=== PATIENT | female | born 1960 | race Caucasian/White ===

== ENCOUNTER 2020-03-02 12:16 | Emergency (ER) | payer BC ==
[2020-03-02] MEDS ORDERED: ONDANSETRON 4 MG/2 ML VIAL ONE ×2 (13:03→16:17)
[2020-03-02 14:24] LABS: Basophils % 0.6 % (0-1.3); Hematocrit 41.6 % (36.0-45.0); Lymphocytes % 13.8 % (15.3-44.8); MPV 7.3 fL (7.6-11.3); RBC Red Blood Cell Count 4.36 M/uL (3.86-4.86)
[2020-03-02 14:39] LABS: ALT/SGPT 26 U/L (12-78); AST/SGOT 24 U/L (15-37); Albumin 3.2 g/dL (3.4-5.0); Alkaline Phosphatase 89 U/L (45-117); BUN Blood Urea Nitrogen 11 mg/dL (7-18); Bicarbonate 28 mmol/L (21-32); Bilirubin Direct 0.1 mg/dL (0-0.2); Bilirubin Total 0.4 mg/dL (0.2-1.0); Glucose Level 106 mg/dL (74-106); Lipase 65 U/L (73-393); Potassium 3.9 mmol/L (3.5-5.1); Protein, Total 6.5 g/dL (6.4-8.2); Sodium Level 142 mmol/L (136-145)
--- NOTE | 2020-03-02 14:50 | RAD REPORT ---
EXAM DESCRIPTION: CTAbdomen Pelvis W Contrast - 03/02/2020 2:25 pm CLINICAL HISTORY: Abdominal pain. ABD PAIN COMPARISON: No comparisons TECHNIQUE: Biphasic CT imaging of the abdomen and pelvis was performed with 100 ml non-ionic IV cont rast. All CT scans are performed using dose optimization technique as appropriate and may include automated exposure control or mA/KV adjustment according to patient size. FINDINGS: The lung bases are clear. Cholecystectomy clips. Postsurgical changes about the stomach. S everal postsurgical clips are also noted in the small bowel mesenteric and left lower quadrant small bowel loops. Postsurgical change also seen involving the rectum. The liver, spleen, pancreas, adrenal glands and kidneys are within normal limits. No bowel obstruction, free air, free fluid or abscess. The appendix is normal. No evidence of signi ficant lymphadenopathy. No suspicious bony findings. IMPRESSION: No acute intra-abdominal or pelvic finding.
[2020-03-02] MEDS ORDERED: NA CHLORIDE 0.9% 500 ML ONE (15:14)
--- NOTE | 2020-03-02 15:31 | ER ---
Nurse's Notes [facility] Name: Mary Snow Age: 59 yrs Sex: Female : 1960 Arrival Date: 03/02/2020 Time: 12:18 Bed 23 Private MD: Diagnosis: Abdominal and pelvic pain;Diarrhea, unspecified;Nausea Presentation: 03/02 12:23 Chief complaint: EMS states: pt started experience n/v about 4 hours ago. diarrhea for zb the last past two days. with fatigue. pt has not been tested for covid. Coronavirus screen: cough unrelated to allergies, fatigue, fever, nausea. Ebola Screen: No symptoms or risks identified at this time. Initial Sepsis Screen: Does the patient meet any 2 criteria? No. Patient's initial sepsis screen is negative. Does the patient have a suspected source of infection? No. Patient's initial sepsis screen is negative. Risk Assessment: Do you want to hurt yourself or someone else? Patient reports no desire to harm self or others. Onset of symptoms was March 02, 2020. 12:23 Method Of Arrival: EMS: [facility] zb 12:23 Acuity: FREDY 3 zb Triage Assessment: 12:54 General: Appears in no apparent distress. comfortable, Behavior is cooperative, zb anxious, Reports feeling ill for 0-12 hours, fatigue for 0-12 hours. Pain: Denies pain. EENT: No signs and/or symptoms were reported regarding the EENT system. Neuro: Level of Consciousness is awake, alert, obeys commands, Oriented to person, place, time, situation. Neuro: Reports weakness in generalized. Cardiovascular: Heart tones S1 S2 present Capillary refill < 3 seconds in bilateral fingers Patient's skin is warm and dry. Pulses are all present. Respiratory: Airway is patent Respiratory effort is even, unlabored, Respiratory pattern is regular, Breath sounds are diminished bilaterally. Respiratory: Reports cough that is Denies shortness of breath. GI: Abdomen is round non-distended, Bowel sounds Abd is soft and non tender X 4 quads. Reports cramping, diarrhea, nausea, vomiting. : No signs and/or symptoms were reported regarding the genitourinary system. Derm: Skin is intact, is healthy with good turgor, Skin is dry, Skin is normal. Musculoskeletal: Circulation, motion, and sensation intact. Capillary refill < 3 seconds, in bilateral fingers. Range of motion: intact in all extremities. Historical: - Allergies: 12:35 TETRACYCLINES; zb 12:35 monocyclines; zb 12:35 Minocycline; zb 12:35 Sulfa (Sulfonamide Antibiotics); zb - Home Meds: 12:54 sertraline 100 mg oral tab 1.5 tabs once daily [Active]; lisinopril 20 mg Oral tab zb [Active]; Benadryl Oral [Active]; Celebrex 100 mg Oral cap [Active]; - PMHx: 12:54 Hypertension; Anxiety; back surgery; colon resection; gastric bypass; left knee zb surgery; gallbladder surgery; - Immunization history:: Adult Immunizations up to date. - Social history:: Smoking status: Patient denies any tobacco usage or history of. Screenin:23 Abuse screen: Denies threats or abuse. Denies injuries from another. Nutritional zb screening: No deficits noted. Tuberculosis screening: No symptoms or risk factors identified. Fall Risk None identified. Assessment: 12:30 Reassessment: See triage assessment. zb 13:30 Reassessment: Patient appears in no apparent distress at this time. Patient and/or zb family updated on plan of care and expected duration. Pain level reassessed. Patient is alert, oriented x 3, equal unlabored respirations, skin warm/dry/pink. family at bedside. pt states no c/o of nausea at time. 14:30 Reassessment: Patient appears in no apparent distress at this time. Patient and/or zb family updated on plan of care and expected duration. Pain level reassessed. Patient is alert, oriented x 3, equal unlabored respirations, skin warm/dry/pink. pt denies c/o of nausea. states that she is feeling better at this moment. family at bedside. no c/o at this time. 15:30 Reassessment: Patient appears in no apparent distress at this time. Patient and/or zb family updated on plan of care and expected duration. Pain level reassessed. Patient is alert, oriented x 3, equal unlabored respirations, skin warm/dry/pink. no c/o at this time. family at bedside. 16:13 Reassessment: Patient appears in no apparent distress at this time. Patient and/or zb family updated on plan of care and expected duration. Pain level reassessed. Patient is alert, oriented x 3, equal unlabored respirations, skin warm/dry/pink. pt of nausea. notified ECP. medication ordered. Vital Signs: 12:23 BP 163 / 100; Pulse 90; Resp 20; Temp 99.3; Pulse Ox 98% on R/A; Weight 77.11 kg; zb Height 5 ft. 7 in. (170.18 cm); Pain 0/10; 13:30 BP 149 / 88; Pulse 88; Resp 16; Pulse Ox 97% on R/A; zb 14:30 BP 139 / 75; Pulse 71; Resp 16; Pulse Ox 95% on R/A; zb 15:30 BP 149 / 88; Pulse 79; Resp 18; Pulse Ox 99% on R/A; zb 16:15 BP 131 / 114; Pulse 80; Resp 16; Pulse Ox 99% on R/A; zb 12:23 Body Mass Index 26.63 (77.11 kg, 170.18 cm) zb ED Course: 12:18 Patient arrived in ED. em1 12:19 Abilio Espitia MD is Attending Physician. kdr 12:23 Flory Barrera RN is Primary Nurse. zb 12:30 Patient has correct armband on for positive identification. Placed in gown. Bed in low zb position. Call light in reach. Side rails up X 1. Adult w/ patient. surveillance monitor on. Pulse ox on. NIBP on. Door closed. Noise minimized. Warm blanket given. 12:30 Arm band placed on left wrist. zb 12:32 Triage completed. zb 14:25 CT Abd/Pelvis - IV Contrast Only In Process Unspecified. EDMS 16:15 No provider procedures requiring assistance completed. IV discontinued, intact, zb bleeding controlled, No redness/swelling at site. Pressure dressing applied. Administered Medications: 12:58 Drug: Zofran (Ondansetron) 4 mg Route: IVP; Site: right antecubital; zb 13:30 Follow up: Response: No adverse reaction; Nausea is decreased zb 15:00 Drug: NS 0.9% 500 ml Route: IV; Rate: bolus; Site: right antecubital; zb 15:57 Follow up: Response: No adverse reaction; IV Status: Completed infusion; IV Intake: zb 500ml Intake: 15:57 IV: 500ml; Total: 500ml. zb Outcome: 15:30 Discharge ordered by . kdr 16:16 Discharged to home ambulatory. zb 16:16 Condition: stable 16:16 Discharge instructions given to patient, family, Instructed on discharge instructions, follow up and referral plans. medication usage, Demonstrated understanding of instructions, follow-up care, medications, Prescriptions given X 2. 16:16 Patient left the ED. zb Addendum: 03/06/2020 09:06 Addendum: COVID-19 Result: Positive result giiven to ED physician to notify pt. s s Physician: Ashutosh Bernardo MD Physician attempted to contact pt. Physician left voice mail for pt to call the ED back. 09:40 Addendum: COVID-19 Result: Positive result giiven to ED physician to notify pt. i w Physician: Ashutosh Bernardo MD Physician was able to contact pt and pt was notified of positive COVID-19 swab result. Physician answered pt questions. Signatures: Dispatcher [employer] EDMS Abilio Espitia MD MD kdr Williams, Irene, RN RN iw Martinez, Eric em1 Isa Thompson RN RN ss Brown, Zipporah, RN RN zb
--- NOTE | 2020-03-02 15:31 | EDPHYS ---
Physician Documentation [facility] Name: Mary Snow Age: 59 yrs Sex: Female : 1960 Arrival Date: 03/02/2020 Time: 12:18 Bed 23 Private MD: ED Physician Abilio Espitia HPI: 03/02 15:43 This 59 yrs old Female presents to ER via EMS with complaints of General kdr Weakness, Nausea. 15:43 The patient presents to the emergency department with nausea, that is mild, diarrhea, kdr that is intermittent, for two days. Onset: The symptoms/episode began/occurred gradually, diarrhea for two days and nausea for four hours. The symptoms are aggravated by nothing. The symptoms are alleviated by nothing. Associated signs and symptoms: Pertinent positives: abdominal pain, diarrhea, nausea, Pertinent negatives: vomiting. Severity of symptoms: At their worst the symptoms were mild in the emergency department the symptoms have improved mildly. The patient has not experienced similar symptoms in the past. The patient has not recently seen a physician. Historical: - Allergies: 12:35 TETRACYCLINES; zb 12:35 monocyclines; zb 12:35 Minocycline; zb 12:35 Sulfa (Sulfonamide Antibiotics); zb - Home Meds: 12:54 sertraline 100 mg oral tab 1.5 tabs once daily [Active]; lisinopril 20 mg Oral tab zb [Active]; Benadryl Oral [Active]; Celebrex 100 mg Oral cap [Active]; - PMHx: 12:54 Hypertension; Anxiety; back surgery; colon resection; gastric bypass; left knee zb surgery; gallbladder surgery; - Immunization history:: Adult Immunizations up to date. - Social history:: Smoking status: Patient denies any tobacco usage or history of. ROS: 15:43 Constitutional: Negative for fever, chills, and weight loss, Eyes: Negative for injury, kdr pain, redness, and discharge, Neck: Negative for injury, pain, and swelling, Cardiovascular: Negative for chest pain, palpitations, and edema, Respiratory: Negative for shortness of breath, cough, wheezing, and pleuritic chest pain, Back: Negative for injury and pain, : Negative for injury, bleeding, discharge, and swelling, MS/Extremity: Negative for injury and deformity, Skin: Negative for injury, rash, and discoloration, Neuro: Negative for headache, weakness, numbness, tingling, and seizure activity. Psych: Negative for depression, anxiety, suicide ideation, homicidal ideation, and hallucinations, Allergy/Immunology: Negative for hives, rash, and allergies, Endocrine: Negative for neck swelling, polydipsia, polyuria, polyphagia, and marked weight changes, Hematologic/Lymphatic: Negative for swollen nodes, abnormal bleeding, and unusual bruising. 15:43 Abdomen/GI: Positive for abdominal pain, nausea, diarrhea, Negative for constipation, abdominal distension, anorexia, black/tarry stool, rectal pain, rectal bleeding. Exam: 15:43 Constitutional: This is a well developed, well nourished patient who is awake, alert, kdr and in no acute distress. Head/Face: Normocephalic, atraumatic. Eyes: Pupils equal round and reactive to light, extra-ocular motions intact. Lids and lashes normal. Conjunctiva and sclera are non-icteric and not injected. Cornea within normal limits. Periorbital areas with no swelling, redness, or edema. Neck: Trachea midline, no thyromegaly or masses palpated, and no cervical lymphadenopathy. Supple, full range of motion without nuchal rigidity, or vertebral point tenderness. No Meningismus. Chest/axilla: Normal chest wall appearance and motion. Nontender with no deformity. No lesions are appreciated. Cardiovascular: Regular rate and rhythm with a normal S1 and S2. No gallops, murmurs, or rubs. Normal PMI, no JVD. No pulse deficits. Respiratory: Lungs have equal breath sounds bilaterally, clear to auscultation and percussion. No rales, rhonchi or wheezes noted. No increased work of breathing, no retractions or nasal flaring. Back: No spinal tenderness. No costovertebral tenderness. Full range of motion. Skin: Warm, dry with normal turgor. Normal color with no rashes, no lesions, and no evidence of cellulitis. MS/ Extremity: Pulses equal, no cyanosis. Neurovascular intact. Full, normal range of motion. Neuro: Awake and alert, GCS 15, oriented to person, place, time, and situation. Cranial nerves II-XII grossly intact. Motor strength 5/5 in all extremities. Sensory grossly intact. Cerebellar exam normal. Normal gait. Psych: Awake, alert, with orientation to person, place and time. Behavior, mood, and affect are within normal limits. 15:43 Abdomen/GI: Inspection: abdomen appears normal, Bowel sounds: active, all quadrants. Vital Signs: 12:23 BP 163 / 100; Pulse 90; Resp 20; Temp 99.3; Pulse Ox 98% on R/A; Weight 77.11 kg; zb Height 5 ft. 7 in. (170.18 cm); Pain 0/10; 13:30 BP 149 / 88; Pulse 88; Resp 16; Pulse Ox 97% on R/A; zb 14:30 BP 139 / 75; Pulse 71; Resp 16; Pulse Ox 95% on R/A; zb 15:30 BP 149 / 88; Pulse 79; Resp 18; Pulse Ox 99% on R/A; zb 16:15 BP 131 / 114; Pulse 80; Resp 16; Pulse Ox 99% on R/A; zb 12:23 Body Mass Index 26.63 (77.11 kg, 170.18 cm) zb MDM: 15:30 Patient medically screened. kdr 15:43 Data reviewed: vital signs, nurses notes, lab test result(s), radiologic studies. kdr Counseling: I had a detailed discussion with the patient and/or guardian regarding: the historical points, exam findings, and any diagnostic results supporting the discharge/admit diagnosis, lab results, radiology results, the need for outpatient follow up. 03/02 13:50 Order name: Basic Metabolic Panel; Complete Time: 14:41 kdr 03/02 13:50 Order name: CBC with Diff; Complete Time: 14:41 kdr 03/02 13:50 Order name: Hepatic Function; Complete Time: 14:41 kdr 03/02 13:50 Order name: Lipase; Complete Time: 14:41 kdr 03/02 14:02 Order name: Flu kdr 03/02 14:02 Order name: COVID-19 kdr 03/02 13:50 Order name: IV Saline Lock; Complete Time: 14:11 kdr 03/02 13:50 Order name: Labs collected and sent; Complete Time: 14:11 kdr 03/02 13:50 Order name: CT Abd/Pelvis - IV Contrast Only; Complete Time: 14:56 kdr 03/02 14:48 Order name: CREATININE WHOLE BLOOD; Complete Time: 14:56 EDMS Administered Medications: 12:58 Drug: Zofran (Ondansetron) 4 mg Route: IVP; Site: right antecubital; zb 13:30 Follow up: Response: No adverse reaction; Nausea is decreased zb 15:00 Drug: NS 0.9% 500 ml Route: IV; Rate: bolus; Site: right antecubital; zb 15:57 Follow up: Response: No adverse reaction; IV Status: Completed infusion; IV Intake: zb 500ml Disposition: 03/02/20 15:30 Discharged to Home. Impression: Abdominal and pelvic pain, Diarrhea, unspecified, Nausea. - Condition is Stable. - Discharge Instructions: Abdominal Pain, Adult, [id number], Diarrhea, Adult, [id number]. - Prescriptions for Zofran 4 mg Oral Tablet - take 1 tablet by ORAL route every 4-6 hours As needed; 16 tablet. Pepcid 20 mg Oral Tablet - take 1 tablet by ORAL route once daily; 20 tablet. - Medication Reconciliation Form, Thank You Letter form. - Follow up: Private Physician; When: 2 - 3 days; Reason: If symptoms return, Further diagnostic work-up, Recheck today's complaints, Continuance of care, Re-evaluation by your physician. - Problem is new. - Symptoms have improved. Signatures: Dispatcher [employer] EDLA Abilio Espitia MD MD kdr Brown, Zipporah, RN RN zb Corrections: (The following items were deleted from the chart) 16:16 15:30 03/02/2020 15:30 Discharged to Home. Impression: Abdominal and pelvic pain; zb Diarrhea, unspecified; Nausea. Condition is Stable. Forms are Medication Reconciliation Form, Thank You Letter, Antibiotic Education, Prescription Opioid Use. Follow up: Private Physician; When: 2 - 3 days; Reason: If symptoms return, Further diagnostic work-up, Recheck today's complaints, Continuance of care, Re-evaluation by your physician. Problem is new. Symptoms have improved. kdr
[2020-03-02 16:32] VITALS: TEMP 99.3
[2020-03-02 16:35] VITALS: O2SAT 99
[2020-03-02 16:36] VITALS: BP 131/114
== END 2020-03-02 16:16 | disposition home or self-care (01) ==
LOC: ER 12:16
DX: U07.1 COVID-19 (principal); R10.2 Pelvic and perineal pain; R19.7 Diarrhea, unspecified; I10 Essential (primary) hypertension; F41.9 Anxiety disorder, unspecified; Z88.1 Allergy status to other antibiotic agents; Z88.2 Allergy status to sulfonamides
CPT/HCPCS: 96361; 85025; 80048; 36415; 82565; 80076; 83690; 87804 ×2; 74177; 96374; 99284; U0002; Q9967; J7040; J2405 ×2